=== PATIENT | male | born 1960 | race Caucasian/White ===

== ENCOUNTER 2019-07-04 13:12 | Emergency (ER) | payer BC ==
[~2019-07-04] VITALS: Ht 170.2 cm; Wt 90.9 kg
[2019-07-04 13:18] VITALS: BP 145/94; Ht 170.2 cm; Wt 90.9 kg
[2019-07-04] MEDS ORDERED: ELIQUIS5 MG PO (13:19)
[2019-07-04] MEDS ORDERED: K-TAB10 MEQ PO (13:20)
[2019-07-04] MEDS ORDERED: LASIX20 MG PO (13:20)
[2019-07-04] MEDS ORDERED: TOPROL XL50 MG PO (13:20)
[2019-07-04] MEDS ORDERED: PRAVACHOL20 MG PO (13:20)
[2019-07-04] MEDS ORDERED: LOTENSIN 10 MG10 MG PO (13:21)
[2019-07-04] MEDS ORDERED: FLOMAX0.4 MG PO (13:21)
[2019-07-04] MEDS ORDERED: ALBUTEROL SULF8.5 GM INH (13:22)
[2019-07-04 13:58] LABS: BASOPHILS 0.1 % (0-2); EOSINOPHILS 1.1 % (0-7); HEMATOCRIT 54.7 % (42.0-54.0); HEMOGLOBIN 19.2 g/dL (13.5-17.5); IMMATURE GRANULOCYTES 0.6 % (0-5); LYMPHOCYTES 19.2 % (15-50); MCH 30.5 pg (26.0-34.0); MCHC 35.1 g/dL (31.0-37.0); MCV 86.8 fL (80.0-100.0); MEAN PLATELET VOLUME 11.2 fL (7.4-10.4); MONOCYTES 9.1 % (2-11); NEUTROPHILS 69.9 % (40-80); PLATELET COUNT 226 10x3/uL (130-400); WBC 8.3 10x3/uL (4.8-10.8)
[2019-07-04 14:02] LABS: ANION GAP 16.8 mmol/L (8-16); CALCIUM 8.7 mg/dL (8.5-10.1); CARBON DIOXIDE 23.6 mmol/L (21.0-32.0); CREATININE - SERUM 1.6 mg/dL (0.6-1.3); POTASSIUM - SERUM 4.4 mmol/L (3.5-5.1)
[2019-07-04 14:04] LABS: APTT 31.8 SECONDS (22.8-39.4); INR 1.05 (0.85-1.17); PROTIME 13.2 SECONDS (11.6-15.0)
[2019-07-04 14:08] LABS: ALBUMIN 3.7 g/dL (3.4-5.0); BILIRUBIN - TOTAL 0.91 mg/dL (0.2-1.3); PROTEIN - SERUM 7.2 g/dL (6.4-8.2)
[2019-07-04] MEDS ORDERED: AUGMENTIN 875-11 TAB PO (15:48)
[2019-07-04] MEDS ORDERED: ULTRAM50 MG PO (15:48)
== END 2019-07-04 17:14 | disposition home or self-care (01) ==
LOC: D.ER 13:12
PROVIDERS: Emergency Medicine
DX: R04.0 Epistaxis (principal); I10 Essential (primary) hypertension; I48.91 Unspecified atrial fibrillation; Z79.01 Long term (current) use of anticoagulants; J45.909 Unspecified asthma, uncomplicated

== ENCOUNTER 2020-02-15 15:18 | Emergency (ER) | payer MEDICAID ==
[~2020-02-15] VITALS: Ht 170.2 cm; Wt 90.9 kg
[~2020-02-15 15:18] MED LIST: ALBUTEROL SULF8.5 GM INH; AUGMENTIN 875-11 TAB PO; ELIQUIS5 MG PO; FLOMAX0.4 MG PO; K-TAB10 MEQ PO; LASIX20 MG PO; LOTENSIN 10 MG10 MG PO; PRAVACHOL20 MG PO; TOPROL XL50 MG PO; ULTRAM50 MG PO
[2020-02-15 15:27] VITALS: Ht 170.2 cm; Wt 90.9 kg
[2020-02-15] MEDS ORDERED: PEPCID40 MG PO (15:30)
[2020-02-15] MEDS ORDERED: AMIODARONE HCL200 MG PO (15:30)
[2020-02-15] MEDS ORDERED: CLARITIN 10 MG10 MG PO (15:30)
[2020-02-15 16:10] LABS: BASOPHILS 0.2 % (0-2); EOSINOPHILS 2.6 % (0-7); HEMATOCRIT 53.1 % (42.0-54.0); HEMOGLOBIN 18.1 g/dL (13.5-17.5); IMMATURE GRANULOCYTES 0.5 % (0-5); LYMPHOCYTES 19.8 % (15-50); MCH 29.6 pg (26.0-34.0); MCHC 34.1 g/dL (31.0-37.0); MCV 86.9 fL (80.0-100.0); MEAN PLATELET VOLUME 10.9 fL (7.4-10.4); MONOCYTES 11.4 % (2-11); NEUTROPHILS 65.5 % (40-80); PLATELET COUNT 189 10x3/uL (130-400); RBC 6.11 10x6/uL (4.20-6.10); RDW 14.4 % (11.5-14.5); WBC 6.2 10x3/uL (4.8-10.8)
[2020-02-15 16:12] LABS: CALC OSMOLALITY 276 mosm/kg (275-300); CALCIUM 8.5 mg/dL (8.5-10.1); CARBON DIOXIDE 26.6 mmol/L (21.0-32.0); CHLORIDE - SERUM 102 mmol/L (98-107); CREATININE - SERUM 1.5 mg/dL (0.6-1.3); GLUCOSE 113 mg/dL (74-106); POTASSIUM - SERUM 3.3 mmol/L (3.5-5.1); SODIUM 138 mmol/L (136-145); UREA NITROGEN 13 mg/dL (7-18); eGFR NON AFRICAN AMERICAN 51 mL/min (90-120)
[2020-02-15 16:14] LABS: INR 1.06 (0.85-1.17); PROTIME 13.8 SECONDS (11.6-15.0)
[2020-02-15 16:27] LABS: ALBUMIN 3.6 g/dL (3.4-5.0); ALKALINE PHOSPHATASE 49 U/L (30-120); ALT (SGPT) 31 U/L (10-68); BILIRUBIN - TOTAL 0.85 mg/dL (0.2-1.3); CKMB 3.3 U/L (0.0-3.6); CREATINE KINASE 129 UL (21-232); MAGNESIUM - SERUM 1.9 mg/dL (1.8-2.4)
[2020-02-15 16:31] LABS: TROPONIN-I < 0.017 ng/mL (0.000-0.060)
[2020-02-15 17:22] VITALS: BP 126/87
== END 2020-02-15 17:23 | disposition home or self-care (01) ==
LOC: D.ER 15:18
PROVIDERS: Family Medicine
DX: I11.0 Hypertensive heart disease with heart failure (principal); I50.9 Heart failure, unspecified; R07.9 Chest pain, unspecified; I48.91 Unspecified atrial fibrillation; R06.02 Shortness of breath